=== PATIENT | female | born 2000 | race Two or more races ===

== ENCOUNTER 2021-12-04 10:39 | Emergency (ER) | payer OTHER ==
[~2021-12-04] VITALS: Ht 162.6 cm; Wt 49.9 kg
[2021-12-04 10:45] VITALS: BP 110/62
[2021-12-04] MEDS ORDERED: FAMOTIDINE 20 MG/2 ML VIAL IVP ONE (10:50)
[2021-12-04] MEDS ORDERED: NACL 0.9% 1,000 ML IV ONE (10:50)
[2021-12-04] MEDS ORDERED: DICYCLOMINE 10 MG CAP PO ONE (11:25)
[2021-12-04 11:26] LABS: BASOPHILS % (AUTO) 0.1 % (0.0-2.0); EOSINOPHILS % (AUTO) 0.2 % (0.0-4.0); HEMOGLOBIN 15.3 g/dL (12.0-16.0); LYMPHOCYTES # (AUTO) 0.3 K/uL (2.5-16.5); LYMPHOCYTES % (AUTO) 2.9 % (20.5-51.1); MEAN CORPUSCULAR HEMOGLOBIN 29 pg (27-31); MEAN CORPUSCULAR HGB CONC 34 g/dL (33-37); MEAN CORPUSCULAR VOLUME 83.8 fL (80-94); MONOCYTES # (AUTO) 0.3 K/uL (0.8-1.0); MONOCYTES % (AUTO) 3.2 % (1.7-9.3); NEUTROPHILS # (AUTO) 8.9 K/uL (1.8-7.7); NEUTROPHILS % (AUTO) 93.6 % (42.2-75.2); PLATELET COUNT (AUTO) 233 K/uL (140-450); RED BLOOD CELL COUNT(AUTO) 5.37 MIL/uL (4.20-5.40); RED CELL DISTRIBUTION WIDTH 13.2 % (11.6-13.7); WHITE BLOOD COUNT (AUTO) 9.5 K/uL (4.5-11.0)
[2021-12-04 11:46] LABS: ALBUMIN 4.5 g/dL (3.4-5.0); ANION GAP 15.8 (8-16); CARBON DIOXIDE 25.6 mmol/L (21-32); CREATININE 0.7 mg/dL (0.6-1.3); POTASSIUM 3.4 mmol/L (3.5-5.1); TOTAL BILIRUBIN 0.6 mg/dL (0.0-1.0)
[2021-12-04] MEDS ORDERED: ONDA-188 PO (12:35)
[2021-12-04] MEDS ORDERED: FAMO-90 PO (12:35)
[2021-12-04] MEDS ORDERED: BEN10 PO (12:35)
[2021-12-04 12:47] VITALS: BP 110/62
== END 2021-12-04 12:47 | disposition home or self-care (01) ==
LOC: MED 10:39
DX: R11.10 Vomiting, unspecified (principal); R10.9 Unspecified abdominal pain; R68.83 Chills (without fever)
CPT/HCPCS: 36415; 80053; 81002; 81025; 83690; 85025; 87804; 96374; 99283; J3490; J7030